=== PATIENT | male | born 1955 | race Caucasian/White ===

== ENCOUNTER 2020-03-27 09:37 | Emergency (ER) | payer MEDICARE, OTHER, SELFPAY ==
--- NOTE | 2020-03-27 09:49 | ED.SKABFB ---
HPI - Skin/Abscess/Foreign Bdy General Chief complaint: Skin/Abscess/Foreign Body Stated complaint: rash Time Seen by Provider: 03/27/20 09:54 Source: patient and RN notes reviewed Mode of arrival: ambulatory Limitations: no limitations History of Present Illness HPI narrative: 65 year old male who presents to [facility] care with complaints of red raised rash which started on his left forearm this morning around 0830 and after he took a hot shower rash spread to his other forearm and chest and abdomen. Patient states that he was diagnosed positive COVID on 03/02/2020 and his symptoms have resolved. Patient has red raised rash on bilateral forearms and also noted on chest and abdominal region which is pruritic and are circular like hive formation, no weeping or vesicles. Patient denies any new medications,food, laundry soap, bath soap or lotions. MD complaint: rash Onset (ago): hour(s) (1.5 hours ago) Location: chest, LUE and RUE Severity: moderate Quality: pruritic Relieving factors: topical medication (benadryl cream) Exacerbating factors: other (took hot shower made symptoms worse) Context: recent illness (COVID positive 03/02/2020) Associated symptoms: denies other symptoms Treatments prior to arrival: OTC topical medication Related Data Home Medications Medication Instructions Recorded Confirmed benzonatate 200 mg PO DAILY 03/27/20 03/27/20 Allergies Allergy/AdvReac Type Severity Reaction Status Date / Time Sulfa (Sulfonamide Allergy Severe RED RASH Verified 03/27/20 09:41 Antibiotics) ENTIRE BODY Review of Systems Review of Systems: Narrative: CONSTITUTIONAL: Denies fever, chills, or sweats. EYES: Denies visual changes, redness, or discharge. ENT: Denies rhinorrhea, congestion, sore throat, or otalgia. CARDIOVASCULAR: Denies chest pain, palpitations, or edema. RESPIRATORY: Denies cough or dyspnea. GASTROINTESTINAL: Denies abdominal pain, nausea, vomiting, or diarrhea. GENITOURINARY: Denies dysuria or hematuria. SKIN: positive red raised pruritic hive formation on bilateral forearms, chest and some lower lateral areas of abdomen. MUSCULOSKELETAL: Denies back pain, joint pain, or myalgia. NEUROLOGIC: Denies headache, numbness, or weakness. PSYCHIATRIC: Denies anxiety or depression. All systems reviewed & are unremarkable except as noted in HPI and below PMFSH Past Medical History Medical History (Updated 03/28/20 @ 00:00 by Skip Iyer) Kidney stones Skin cancer Surgical History Surgical History (Updated 03/27/20 @ 09:59 by Theresa Mcadams NP) History of cervical spinal surgery C5-C6 fusion History of lithotripsy Status post surgical removal of malignant neoplasm of skin Family History Family History (Updated 03/28/20 @ 13:34 by Theresa Mcadams NP) Sibling Diabetes mellitus Mother Heart disease Social History Social History (Updated 03/28/20 @ 13:34 by Theresa Mcadams NP) Smoking status: Never smoker Alcohol intake: current Alcohol use details: Rare Living arrangements: with family Gender identity (if verbalized by the patient): Male Comments At time of signature, agree with nursing past medical, surgical, social and family history. There is no relevant family history pertinent to the presenting complaint Exam Narrative: Exam Narrative: GENERAL: Well-appearing, well-nourished, and in no acute distress. HEAD: Normocephalic, atraumatic. EYES: PERRLA and EOMI. ENT: Nares clear, no rhinorrhea or epistaxis. Mucous membranes moist. NECK: Supple. CHEST: Clear to auscultation. No respiratory distress. HEART: Regular rate and rhythm. No murmur heard. Normal peripheral pulses. ABDOMEN: Soft, nontender, nondistended, normal active bowel sounds. EXTREMITIES: Normal range of motion. No edema. SKIN: Warm, dry, no rash. NEURO: No focal deficits. Alert and oriented x3. Course Vital Signs Vital signs: Vital Signs Temperature 36.0 C L 03/27/20 09:52 Pulse Rate 79
[2020-03-27 09:52] VITALS: BP 136/81; PULSE 79; RESP 16; TEMP 36; O2SAT 98
[2020-03-27] MEDS: methylPREDNISolone ACETATE 80 MG/ML VIAL IM (10:16)
[2020-03-27 10:19] VITALS: BP 136/81; PULSE 79; RESP 16; TEMP 36; O2SAT 98
== END 2020-03-27 10:30 | disposition home or self-care (01) ==
PROVIDERS: Emergency Provider Registered Nurse; PCP Family Medicine
DX: L50.9 Urticaria, unspecified (principal); Z85.828 Personal history of other malignant neoplasm of skin; Z86.19 Personal history of other infectious and parasitic diseases
CPT/HCPCS: 96372; 99213; G0463; J1040

== ENCOUNTER 2021-11-25 07:51 | Outpatient (NON) | payer MEDICARE, SELFPAY | END 2021-11-25 07:52 | disposition home or self-care (01) | LOC: ANHLAB 11-26 07:56 | PROVIDERS: PCP Family Medicine; Visit Provider Internal Medicine Gastroenterology | DX: Z12.11 Encounter for screening for malignant neoplasm of colon (principal) | CPT/HCPCS: 88305 ==

== ENCOUNTER 2021-11-25 11:55 | Day surgery (SDC) | payer MEDICARE, SELFPAY ==
[2021-11-08 13:34] VITALS: BMI 28.7
[2021-11-25 12:15] VITALS: BP 135/82; PULSE 93; RESP 16; TEMP 37; O2SAT 98
[2021-11-25 12:23] VITALS: BMI 29.9
--- NOTE | 2021-11-25 13:36 | P.HP_ITS ---
H&P: HPI History of Present Illness Date/Time: 11/25/21 13:36 Chief Complaint: History of colon polyps. Narrative: This is a 66-year-old white male patient seen in evaluation for colonoscopy. Patient has a history of colon polyps in the past. Patient's current weight appetite bowel movements are normal. His most recent colonoscopy 2016 was unremarkable. Patient denies abdominal pain. He has had no bleeding. Family history noncontributory. Review of Systems Review of Systems: Review of systems noncontributory. [facility] Past Medical History Medical History (Updated 11/25/21 @ 13:38 by Al Bazzi MD) Kidney stones Skin cancer Surgical History Surgical History (Updated 03/27/20 @ 09:59 by Theresa Mcadams NP) History of cervical spinal surgery C5-C6 fusion History of lithotripsy Status post surgical removal of malignant neoplasm of skin Family History Family History (Updated 03/28/20 @ 13:34 by Theresa Mcadams NP) Sibling Diabetes mellitus Mother Heart disease Social History Social History (Updated 03/28/20 @ 13:34 by Theresa Mcadams NP) Smoking status: Never smoker Alcohol intake: current Drinks per week: 2 Alcohol use details: Rare Substance use type: does not use Living arrangements: with family Gender identity (if verbalized by the patient): Male Spiritual care concerns: No Meds Home Medications and Allergies Home Medications Medication Instructions Recorded Confirmed Type sodium sul 1.479 gram-potas ch See Rx Instructions PO PER PKG DIR 09/29/21 Rx 0.188 gram-magnes sul 0.225 gram #24 tabs tablet (Sutab) Allergies Allergy/AdvReac Type Severity Reaction Status Date / Time Sulfa (Sulfonamide Allergy Severe RED RASH Verified 11/25/21 12:19 Antibiotics) ENTIRE BODY Exam Narrative: Physical exam reveals patient to be alert. Vital signs stable. HEENT exam is unremarkable. Patient is anicteric. Lungs are clear to auscultation and percussion. Heart is without murmur or extra sounds. Abdomen bowel sounds present soft nontender with no organomegaly. Digital external rectal exam is normal. Assessment and Plan Assessment and plan (1) Encounter for screening colonoscopy: Code(s): Z12.11 - Encounter for screening for malignant neoplasm of colon Status: Acute Assessment and Plan: Patient presents for screening colonoscopy. Patient has a distant history of colon polyps. Most recent colonoscopy fiber 6 years ago was unremarkable. Plan is for colonoscopy now further recommendations will be given after endoscopy.
[2021-11-25] MEDS: LACTATED RINGERS 1,000 ML 150 ML IV CONT (13:38)
--- NOTE | 2021-11-25 13:48 | P.PNAN_ITS ---
Anes - Initial Pre Proc Eval Procedure: Operation Date: 11/25/21 13:30 Proposed Procedures p Screening Colonoscopy - Al Bazzi MD Date/Time: 11/25/21 13:48 Surgeon: Al Bazzi MD Pre Op Diagnosis: History of Polyps Patient Data Age: 66 Gender: M Height: 1.78 m Weight: 94.65 kg Allergies Allergy/AdvReac Type Severity Reaction Status Date / Time Sulfa (Sulfonamide Allergy Severe RED RASH Verified 11/25/21 12:19 Antibiotics) ENTIRE BODY Home Medications Medication Instructions Recorded Confirmed Type sodium sul 1.479 gram-potas ch See Rx Instructions PO PER PKG DIR 09/29/21 Rx 0.188 gram-magnes sul 0.225 gram #24 tabs tablet (Sutab) Patient hx anesthesia problems: none Family hx anesthesia problems: none Results Review: All pre-operative results and documents have been reviewed as part of the pre- operative evaluation. [facility] Past Medical History Medical History (Updated 11/25/21 @ 13:48 by Mark Esquivel MD) Kidney stones Overweight Skin cancer Surgical History Surgical History History of cervical spinal surgery C5-C6 fusion History of lithotripsy Status post surgical removal of malignant neoplasm of skin Family History Family History Sibling Diabetes mellitus Mother Heart disease Social History Social History Smoking status: Never smoker Alcohol intake: current Drinks per week: 2 Alcohol use details: Rare Substance use type: does not use Living arrangements: with family Gender identity (if verbalized by the patient): Male Spiritual care concerns: No Anes - Eval Final PreProcedure Day of Procedure 11/25/21 13:48 Patient weight: overweight Heart: regular rate and rhythm Lungs: clear to auscultation Airway: Mallampati scale class II Last oral intake: >/= 8 hours ASA classification: II Emergent: no Anesthetic plan: proceed Anesthesia type and monitoring: general GIVS and standard monitoring Results Review: All pre-operative results and documents have been reviewed as part of the pre- operative evaluation. Informed Consent: The patient's anesthetic plan and its attendant risks and benefits were discussed with the patient/family/POA. Questions were solicited and answers provided to the satisfaction of the patient/family/POA.
[2021-11-25 15:02] VITALS: BP 130/79; PULSE 77; RESP 16; O2SAT 100
[2021-11-25 15:12] VITALS: BP 140/108; PULSE 77; RESP 18; O2SAT 100
[2021-11-25 15:22] VITALS: BP 152/90; PULSE 68; RESP 18
--- NOTE | 2021-11-25 15:32 | WPDANESPN ---
Anes - Prog Note Post-Op Date/Time: 11/25/21 15:32 Cardiovascular status: normal Respiratory status: normal Airway patency: baseline Mental status: baseline Post-Op hydration status: normal Vital Signs: Last Vital Signs Temp 37.0 C 11/25/21 12:15 Pulse 68 11/25/21 15:22 Resp 18 11/25/21 15:22 BP 152/90 H 11/25/21 15:22 Pulse Ox 100 11/25/21 15:12 O2 Del Method Room Air 11/25/21 15:22 Pain Score (VAS): 0/10 I/O: Intake & Output 11/24/21 11/25/21 11/25/21 23:59 07:59 15:59 Intake Total 150 Balance 150 Patient Feedback: Patient satisfied with anesthetic care.
== END 2021-11-25 15:44 | disposition home or self-care (01) ==
PROVIDERS: PCP Family Medicine; Visit Provider Internal Medicine Gastroenterology
PROC: 0DJD8ZZ Inspection of Lower Intestinal Tract, Via Natural or Artificial Opening Endoscopic (ICD-10-PCS; CPT 45378; principal; 2021-11-25 13:30)
DX: Z86.010 Personal history of colon polyps (principal)
CPT/HCPCS: 45385

== ENCOUNTER → 2022-04-20 15:07 | Outpatient (CLI) | payer MEDICARE, SELFPAY ==
--- NOTE | ~2022-04-20 | XR_ITS ---
XR knee RT min 4V DATE: 04/20/2022 15:27 INDICATION: Right knee pain TECHNIQUE: 4 views COMPARISON: 03/2018 right knee FINDINGS: There is tricompartment osteoarthritis, severe at the medial compartment with nearly comple te obliteration of medial compartment joint space. There is mild periarticular spurring at the latera l and patellofemoral compartments. Mild suprapatellar knee joint effusion is suggested. No fracture, dislocation, periosteal reaction or bone destruction. No radiopaque intra-articular loos e body or chondral calcinosis. 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 TS SIFTER
== END ==
PROVIDERS: PCP Family Medicine; Visit Provider Physician Assistant
DX: M17.11 Unilateral primary osteoarthritis, right knee (principal); M25.461 Effusion, right knee
CPT/HCPCS: 73564

== ENCOUNTER → 2023-05-31 13:44 | Outpatient (CLI) | payer MEDICARE, SELFPAY ==
--- NOTE | ~2023-05-31 | MR_ITS ---
EXAMINATION: MR brain/brain stem wo con DATE: 05/31/2023 14:24 INDICATION: Paresthesias of skin TECHNIQUE: Magnetic resonance imaging (MRI) of the brain and brainstem was performed without intraven ous contrast. Sequences included sagittal and axial T1-weighted SE, axial diffusion-weighted FS SE, a xial T2*-weighted GRE, axial T2-weighted FLAIR, and axial T2-weighted FSE. Apparent diffusion coeffic ient (ADC) maps were created. COMPARISON: None. FINDINGS: Small region of restricted diffusion with increased T2 signal in the posterior right frontal venegas r adiata consistent with acute infarct. No intracranial hemorrhage or abnormal intracranial mass lesion . There are scattered areas of nonspecific increased T2-weighted signal intensity in the cerebral whi te matter, predominantly involving the deep and periventricular white matter which is within normal l imits for age. There are no intraparenchymal signal abnormalities seen on the other pulse sequences. The ventricles are symmetric and normal in size. There are no abnormal extra-axial fluid collections. Flow voids are seen in the cerebral arteries on the T2-weighted sequences consistent with their expe cted patency. There is mucosal thickening throughout the paranasal sinuses. The right maxillary sinus is completely filled with T2 hyperintense mucous. Visualized orbits and soft tissues are unremarkabl e. IMPRESSION: 1. Acute infarct in the posterior right frontal venegas radiata. 2. Sinus disease with complete filling of the right maxillary sinus. Reviewed, dictated and finalized at location A. MANAGEMENT ANALYST
== END ==
PROVIDERS: PCP Family Medicine; Visit Provider Family Medicine
DX: R20.2 Paresthesia of skin (principal); J32.9 Chronic sinusitis, unspecified
CPT/HCPCS: 70551

== ENCOUNTER 2023-06-01 14:31 | Outpatient (CLI) | payer MEDICARE, SELFPAY ==
--- NOTE | ~2023-06-01 | US_ITS ---
EXAMINATION: US carotid duplex BI DATE: 06/01/2023 15:17 INDICATION: Cerebral infarct TECHNIQUE: Grayscale, color Doppler, and pulsed Doppler images of the cervical carotid arteries were obtained. The degree of vessel stenosis is placed in one of the following categories: normal, <50%, 5 0-69%, >=70% but less than near-occlusion, near-occlusion, or total occlusion. Note that percent sten osis relative to normal distal artery lumen diameter is indirectly measured from velocity measurement s as described by Tyrone, et al. Radiology 2003; 229:340-346. COMPARISON: None. FINDINGS: RIGHT: The right common carotid artery (CCA) peak systolic velocity (PSV) is 100 cm/s. The right internal ca rotid artery (ICA) PSV is 85 cm/s. The right ICA end-diastolic velocity (EDV) is 23 cm/s. The right I CA/CCA PSV ratio is 0.8. Grayscale and color Doppler images yield an estimate of <50% diameter reduct ion from plaque in the ICA. The external carotid artery (ECA) PSV is 65 cm/s. There is antegrade flow in the right vertebral artery. LEFT: The left CCA PSV is 125 cm/s. The left ICA PSV is 64 cm/s. The left ICA EDV is 27 cm/s. The left ICA/ CCA PSV ratio is 0.5. Grayscale and color Doppler images yield an estimate of <50% diameter reduction from plaque in the ICA. The ECA PSV is 64 cm/s. There is antegrade flow in the left vertebral artery . IMPRESSION: 1. <50% stenosis in the right internal carotid artery. 2. <50% stenosis in the left internal carotid artery. Reviewed, dictated and finalized at location A. NEER FIRST ASSISTANT
== END 2023-06-01 14:32 | disposition home or self-care (01) ==
LOC: ANHIMG 14:33
PROVIDERS: PCP Family Medicine; Visit Provider Family Medicine
DX: I63.9 Cerebral infarction, unspecified (principal); I65.23 Occlusion and stenosis of bilateral carotid arteries
CPT/HCPCS: 93880

== ENCOUNTER 2023-08-15 06:44 | Outpatient (CLI) | payer MEDICARE, SELFPAY ==
--- NOTE | ~2023-08-15 | CT_ITS ---
CT ANGIOGRAM NECK AND HEAD History: Cerebral infarction. Technique: Axial noncontrast imaging of brain was performed. Serial spiral axial images through the h ead and neck were then obtained during arterial phase IV injection of 100 cc of Omnipaque 350. 3-D po stprocessing and MIP images were then reconstructed on the remote workstation. Dose reduction techniq ue was used on this scan by utilizing automated exposure control and iterative reconstruction techniq ue. The dose-length product (DLP) was 1708.39 mGy-cm. CTA neck findings: Bilateral vertebral arteries are patent. Bilateral common carotid, internal carot id, and external carotid arteries are patent. No large vessel occlusion. No stenosis or aneurysm. The proximal right internal carotid artery demonstrates 0% stenosis relative to the normal distal artery lumen diameter. The proximal left internal carotid artery demonstrates 0% stenosis relative to the n ormal distal artery lumen diameter. CTA head findings: Distal vertebral arteries, basilar artery, and posterior cerebral arteries are pat ent. Distal internal carotid arteries, middle cerebral arteries, and anterior cerebral arteries are p atent. No large vessel occlusion. No stenosis or aneurysm. Axial noncontrast imaging of the brain demonstrates a small chronic focal infarct in the right perive ntricular white matter/right basal ganglia. No acute infarct, internal hemorrhage, mass lesion identi fied. Ty-white differentiation preserved. No mass effect or midline shift. Ventricles and subarachn oid spaces are unremarkable. Paranasal sinuses and mastoid air cells are clear. Impression: No significant vascular abnormality seen. No acute abnormality seen in the brain on noncontrast CT imaging of the brain. Focal chronic infarct in the right basal ganglia/right periventricular white matter. Reviewed, dictated and finalized at location . Impression: No significant vascular abnormality seen. No acute abnormality seen in the brain on noncontrast CT imaging of the brain. Focal chronic infarct in the right basal ganglia/right periventricular white ma tter.
[2023-08-15 07:39] LABS: Estimated Glomerular Filt Rate > 60
== END 2023-08-15 06:45 | disposition home or self-care (01) ==
PROVIDERS: PCP Family Medicine; Visit Provider Psychiatry & Neurology Neurology
DX: I63.9 Cerebral infarction, unspecified (principal); M54.2 Cervicalgia; R20.0 Anesthesia of skin; R20.2 Paresthesia of skin
CPT/HCPCS: 70496; 70498; Q9967

== ENCOUNTER 2023-09-05 08:56 | Outpatient (CLI) | payer MEDICARE, SELFPAY ==
--- NOTE | 2023-09-05 11:00 | NEURO_ITS ---
Impression: # Complains of left upper extremity discomfort/tingling. History of C-spine surgery in the past. Not diabetic. # Left moderate to severe left Carpal Tunnel Syndrome. # Left ulnar neuropathy across the elbow. # Needle/EMG exam neurogenic. Nerve Conduction Studies Anti Sensory Summary Table Stim Site NR Peak (ms) P-T Amp (?V) Site1 Site2 Delta-P (ms) Dist (cm) Vinay (m/s) Left Median Anti Sensory (2-3nd Digit) Wrist 4.6 30.5 Wrist 2-3nd Digit 4.6 14.0 30 Wrist 4.6 21.5 Wrist 2-3nd Digit 4.6 14.0 30 Left Radial Anti Sensory (Base 1st Digit) Wrist 2.3 13.5 Wrist Base 1st Digit 2.3 0.0 Left Ulnar Anti Sensory (5th Digit) Wrist 3.2 20.6 Wrist 5th Digit 3.2 14.0 44 Motor Summary Table Stim Site NR Onset (ms) O-P Amp (mV) Site1 Site2 Delta-0 (ms) Dist (cm) Vinay (m/s) Left Median Motor (Abd Poll Brev) Wrist 5.6 1.7 Elbow Wrist 5.4 28.0 52 Elbow 11.0 1.7 Left Ulnar Motor (Abd Dig Minimi) Wrist 2.6 4.9 A Elbow Wrist 6.5 29.0 45 A Elbow 9.1 3.0 B Elbow Wrist 4.8 25.0 52 F Wave Studies NR F-Lat (ms) L-R F-Lat (ms) Left Median (Mrkrs) (Abd Poll Brev) 29.06 Left Ulnar (Mrkrs) (Abd Dig Min) 30.79 EMG Side Muscle Nerve Root Ins Act Fibs Amp Dur Recrt Comment Left 1stDorInt Ulnar C8-T1 Nml Nml Nml >12ms +2 Left Ext Indicis Radial (Post Int) C7-8 Nml Nml Nml Nml Nml Left Ext Digitorum Radial (Post Int) C7-8 Nml Nml Nml Nml Nml Left BrachioRad Radial C5-6 Nml Nml Nml Nml Nml Left PronatorTeres Median C6-7 Nml Nml Nml Nml Nml Left Abd Poll Brev Median C8-T1 Nml Nml Nml >12ms +2 Left ABD Dig Min Ulnar C8-T1 Nml Nml Nml >12ms +2 Left Biceps Musculocut C5-6 Nml Nml Nml Nml Nml Left Triceps Radial C6-7-8 Nml Nml Nml Nml Nml Left Deltoid Axillary C5-6 Nml Nml Nml Nml Nml MTDD
== END 2023-09-05 08:57 | disposition home or self-care (01) ==
LOC: ANHNEURO 08:56
PROVIDERS: PCP Family Medicine; Visit Provider Psychiatry & Neurology Neurology
DX: G56.02 Carpal tunnel syndrome, left upper limb (principal); G56.22 Lesion of ulnar nerve, left upper limb; E11.9 Type 2 diabetes mellitus without complications; I63.9 Cerebral infarction, unspecified; Z98.1 Arthrodesis status
CPT/HCPCS: 95886; 95909

== ENCOUNTER 2023-09-26 11:18 | Outpatient (CLI) | payer MEDICARE, SELFPAY ==
--- NOTE | ~2023-09-26 | XR_ITS ---
Clinical Indication: Disc PA and lateral views of the chest: Comparison: 02/08/2016 Findings: The lungs are clear, without evidence of focal consolidation or pleural effusion. Cardiome diastinal silhouette is within normal limits. Bones and soft tissues are unremarkable. Impression: Normal chest. Reviewed, dictated and finalized at [facility]. Impression: Normal chest.
== END 2023-09-26 11:19 ==
PROVIDERS: PCP Family Medicine; Visit Provider Family Medicine
DX: R06.09 Other forms of dyspnea (principal)
CPT/HCPCS: 71046

== ENCOUNTER 2023-11-14 10:03 | Outpatient (CLI) | payer MEDICARE, SELFPAY ==
--- NOTE | 2023-11-14 22:04 | WPDPFTINT ---
PFT Procedure Performed PFT Procedure Performed Plethysmography (Lung Vol) Diffusing Cap (DLCO) Flow Vol Loop Spirometry w/o Bronchodil PFT Interpretation DOS: 11/14/2023 REQUESTING: Dr. lAen Whitney REASON FOR TESTING: Shortness of breath PULMONARY FUNCTION TESTS Results are reliable and reproducible. Repeatability of spirometry FEV1 maneuver is Grade A. Spirometry: The FEV1 is 2.79 L, 86%. The FVC is 3.71 L, 86%. The FEV1/FVC ratio is 75%. No bronchodilator was administered. Lung volumes: The total lung capacity is 6.96 L, 99%. The residual volume is 2.90 L, 119%. The RV/TLC is 42%. FRC is 4.06 L, 109%. Airway resistance is normal. Diffusion: DLCO is 16.7, 64%, mildly decreased. The DLCO/VA is 3.79, 96%, normal. Flow volume loop: The flow volume loop is unremarkable. IMPRESSION: Normal spirometry, normal lung volumes, mild decrease in diffusion capacity which corrects for DLCO. This is a nonspecific pattern. No bronchodilator was administered. No prior studies for comparison. Kristina Nelson MD
== END 2023-11-14 10:04 | disposition home or self-care (01) ==
PROVIDERS: PCP Family Medicine; Visit Provider Family Medicine
DX: R06.02 Shortness of breath (principal)
CPT/HCPCS: 94375; 94726; 94729

== ENCOUNTER 2024-01-17 10:55 | Outpatient (CLI) | payer MEDICARE, SELFPAY ==
--- NOTE | ~2024-01-17 | XR_ITS ---
Clinical Indication: Shortness of breath PA and lateral views of the chest: Comparison: 09/18/2023 Findings: The lungs are clear, without evidence of focal consolidation or pleural effusion. Cardiome diastinal silhouette is within normal limits. Bones and soft tissues are unremarkable. Impression: Normal chest. Reviewed, dictated and finalized at location . Impression: Normal chest.
[2024-01-17 11:20] LABS: Basophils Percent Auto 0.2 % (0.2-1.2); Eosinophils Absolute Auto 0.1 K/mm3 (0-0.3); Eosinophils Percent Auto 1.4 % (0-4.4); Hematocrit 40.6 % (42.0-52.0); Hemoglobin 13.3 g/dL (14.0-18.0); Immature Granulocyte Absolute 0.01 K/mm3 (0.00-0.031); Immature Granulocyte Percent A 0.2 % (0-0.5); Lymphocytes Absolute Auto 1.59 K/mm3 (0.9-3.2); Lymphocytes Percent Auto 31.4 % (18.3-44.2); Mean Corpuscular HGB Conc 32.8 g/dl (32-36); Mean Corpuscular Hemoglobin 32.4 pg (26-34); Mean Platelet Volume 10.4 fl (7.4-10.4); Monocytes Absolute Auto 0.7 K/mm3 (0.1-0.6); Monocytes Percent Auto 13.2 % (2.6-8.5); Neutrophils Absolute Auto 2.7 K/mm3 (1.3-6.7); Neutrophils Percent Auto 53.6 % (45.5-73.1); Platelet Count Result 134 k/mm3 (150-375); Red Cell Distribution Width 13.2 % (11.5-14.5); White Blood Count 5.1 K/mm3 (4.5-10.0)
[2024-01-17 11:29] LABS: Alanine Aminotransferase 34 U/L (6-50); Albumin Level 4.2 g/dL (3.5-5.1); Alkaline Phosphatase 60 U/L (38-126); Anion Gap 8 mmol/L (4-12); Aspartate Amino Transferase 44 U/L (17-59); Bilirubin,Total 0.5 mg/dL (0.2-1.3); Blood Urea Nitrogen 18 mg/dL (9-20); Calcium 9.2 mg/dL (8.4-10.2); Carbon Dioxide 28 mmol/L (22-30); Chloride 102 mmol/L (98-107); Estimated Glomerular Filt Rate > 60; Glucose 98 mg/dL (65-110); Potassium 4.1 mmol/L (3.4-5.0); Sodium 138 mmol/L (137-145)
== END 2024-01-17 10:56 | disposition home or self-care (01) ==
LOC: ANHLAB 10:59
PROVIDERS: PCP Family Medicine; Visit Provider Internal Medicine Pulmonary Disease
DX: R06.02 Shortness of breath (principal)
CPT/HCPCS: 36415; 71046; 80053; 85025

== ENCOUNTER 2024-04-04 08:15 | Outpatient (CLI) | payer MEDICARE, SELFPAY ==
--- NOTE | ~2024-04-04 | CT_ITS ---
CT Scan of the Chest without Contrast: Clinical Indication: Shortness of breath Technique: Contiguous sections were acquired throughout the chest without intravenous contrast. Dose reduction technique was used on this scan by utilizing automated exposure control and iterative recon struction technique. The dose-length product (DLP) was 382.04 mGy-cm. Findings: There is no evidence of any significant mediastinal, hilar or axillary lymphadenopathy. The mediastin al soft tissues appear normal. There is no evidence of pleural or pericardial effusion. The lungs are clear. No pulmonary nodules or infiltrates are noted. Images through the upper abdomen reveal no abnormalities. Impression: No significant abnormalities seen. Reviewed, dictated and finalized at location . F INFORMATION OFFICER Impression: No significant abnormalities seen.
== END 2024-04-04 08:16 | disposition home or self-care (01) ==
LOC: MICIMG 08:16
PROVIDERS: PCP Family Medicine; Visit Provider Family Medicine
DX: R06.02 Shortness of breath (principal)
CPT/HCPCS: 71250

== ENCOUNTER 2024-05-20 10:06 | Outpatient (CLI) | payer MEDICARE, SELFPAY ==
[2024-05-20 11:03] LABS: Lactic Acid Reflex 0.8 mmol/L (0.7-2.0)
[2024-05-22 17:03] LABS: ANA Cascade Screen POSITIVE (NEGATIVE); Chromatin (Nucleosomal) Ab <1.0 NEG AI (<1.0 NEG); Chromatin Antibody Charge YES; DNA (ds) Antibody Charge YES; JO1 Antibody Charge YES; Jo-1 Antibody <1.0 NEG AI (<1.0 NEG); RNP Antibody <1.0 NEG AI (<1.0 NEG); RNP Antibody Charge YES; SCL70 Antibody Charge YES; SSA Antibody Charge YES; SSB Antibody Charge YES; Sjogren's Antibody (SS-B) 4.4 POS AI (<1.0 NEG); Sm Antibody <1.0 NEG AI (<1.0 NEG); Sm Antibody Charge YES; Sm/RNP Antibody <1.0 NEG AI (<1.0 NEG); Sm/RNP Antibody Charge YES
== END 2024-05-20 10:07 | disposition home or self-care (01) ==
LOC: ANHLAB 10:07
PROVIDERS: PCP Family Medicine; Visit Provider Internal Medicine Critical Care Medicine
DX: R06.02 Shortness of breath (principal)
CPT/HCPCS: 36415; 83605; 86038; 86225; 86235; 86364

== ENCOUNTER 2024-07-26 10:15 | Outpatient (RCR) | payer MEDICARE, SELFPAY ==
--- NOTE | 2024-07-12 15:28 | OPREHPOC ---
Outpatient Therapy Plan of Care This is a Multidisciplinary Plan of Care that may contain components documented by all disciplines (PT, OT, and ST.) PT Problem 1 PT Problem #1 Knowledge Deficit PT Goal 1 Goal / Goal Update Nelson with HEP Target Visit 4 PT Goal 2 Goal / Goal Update Report no pain greater than 1/10 for 2 consecutive weeks Target Visit 5 PT Problem 2 PT Problem #2 Impaired Range of Motion PT Goal 1 Goal / Goal Update 1. Achieve 170 degrees of left shoulder flexion ROM 1. Achieve 80 degrees of left shoulder external rotation ROM Target Visit 5
--- NOTE | 2024-07-12 15:28 | PTOPEVAL1 ---
Assessment and note entered by Senthil Robertson, PT Evaluation Information Assessment Status Evaluation Diagnosis Glenohumeral joint DJD, OA of left shoulder ICD-10 Condition Codes (PT) Pain in left shoulder M25.512 Onset May 2024 Subjective Information Reports that he was shoveling snow and may have overdone it. He had radicular pain following activity. Had a steroid injection in late June and it seems to have helped. He ahs used topicals for pain as well. Reported Pain Level Pain Score 0: Self Report Assessment PT Clinical Summary Patient presents with signs and symptoms consistent with shoulder impingement syndrome. Overall pain was controlled today and able to tolerate capsular mobilization. 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 Plan of Care Interventions Gait Training,Manual Therapy,Neuro Re-education, Therapeutic Activities,Therapeutic Exercise PT Services Indicated Yes Treatment Frequency and 1-2x/week for 5 visits Duration These treatments will address the objective and functional deficits as defined above. The patient will be advanced safely and appropriately in order for the patient to progress towards his/her prior level of function. Additional exercises will be introduced and as well as a comprehensive home exercise program upon discharge, if needed, ?to ensure carryover of functional gains achieved in the clinic. This treatment plan has been reviewed and agreement upon by the patient.
--- NOTE | 2024-07-26 10:48 | PTOPDC ---
Assessment and note entered by Senthil Robertson, PT Evaluation Information Assessment Status Discharge Diagnosis Glenohumeral joint DJD, OA of left shoulder ICD-10 Condition Codes (PT) Pain in left shoulder M25.512 Onset May 2024 Subjective Information Reports that he was shoveling snow and may have overdone it. He had radicular pain following activity. Had a steroid injection in late June and it seems to have helped. He ahs used topicals for pain as well. Reported Pain Level Pain Score 0: Self Report Assessment PT Clinical Summary Patient has met all goals for therapy and is suitable for discharge to HEP to this time. Compliant and understanding of HEP. Plan of Care PT Services Indicated Yes
== END 2024-08-26 13:51 | disposition home or self-care (01) ==
LOC: ANHGOSHPT 10:15
PROVIDERS: PCP Family Medicine; Visit Provider Orthopaedic Surgery
DX: M25.512 Pain in left shoulder (principal); M75.82 Other shoulder lesions, left shoulder; M19.012 Primary osteoarthritis, left shoulder
CPT/HCPCS: 97110; 97140; 97161; 97530

== ENCOUNTER 2024-10-07 14:12 | Outpatient (RCR) | payer MEDICARE, SELFPAY ==
--- NOTE | 2024-10-07 15:25 | STOPEVAL1 ---
Assessment and note entered by Mi Wang, FISH RECEIVER Evaluation Information Diagnosis R13.10 ICD-10 Condition Codes (ST) Dysphagia, pharyngeal phase R13.13 Subjective Information The patient reports cervical surgery in October 2001 to C5-C6 without history of dysphagia. He reports noticing difficulty first in 2019 and that it seems to have become progressively worse overtime. 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 The patient and spouse report primary difficulty with chicken and turkey or dry meats. Which he avoids. No prior MBS study has been completed and he has had no recent respiratory changes or pneumonia. Reported Pain Level Pain Score 0: Self Report Assessment ST Clinical Summary The patient reports cervical surgery in October 2001 to C5-C6 without history of dysphagia. He reports noticing difficulty first in 2019 and that it seems to have become progressively worse overtime. 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 The patient and spouse report primary difficulty with chicken and turkey or dry meats. Which he avoids. No prior MBS study has been completed and he has had no recent respiratory changes or pneumonia. Oral preparation: Timely for trials of thin liquid . With trials of soft bread texture extra time was allowed for mastication of the bolus but again was fairly timely. Pharyngeal Stage: The patient was presented trials solid (soft bread and cracker texture). Initially some coughing after first swallow with the bread texture. Patient appeared to still be completing oral preparation and was not prepared for the initial swallow. However, all additional trials were completed without clinical signs of aspiration and clear vocal quality. When presented with cup drinks of thin liquid the patient had a timely swallow response, clear vocal quality and no observed clinical signs of aspiration. Recommend 1. MBS to better assess swallow function and cricopharyngeal area. 2. Small bites , slow rate of intake, and liquid wash as needed till MBS completed. Plan of Care Interventions Treatment of Swallowing Dysfunction ST Services Indicated Yes These treatments will address the objective and functional deficits as defined above. The patient will be advanced safely and appropriately in order for the patient to progress towards his/her prior level of function. Additional exercises will be introduced and as well as a comprehensive home exercise program upon discharge, if needed, ?to ensure carryover of functional gains achieved in the clinic. This treatment plan has been reviewed and agreement upon by the patient.
--- NOTE | 2024-10-07 15:27 | OPREHPOC ---
Outpatient Therapy Plan of Care This is a Multidisciplinary Plan of Care that may contain components documented by all disciplines (PT, OT, and ST.) ST Problem 1 ST Problem #[address] Goal 1 Goal / Goal Update The patient will participate in home programming to improve carry over/generalization of skills to home environment. Target Visit [address] Problem #[address] Goal 1 Goal / Goal Update Dysphagia: 1. MBS study be completed. 2. Utilize dysphagia compensatory techniques small bites, slow rate, liquid wash 85% of time. 3. Additional dysphagia exercises program as indicated following MBS study. Target Visit 10
--- NOTE | 2025-03-13 13:23 | PCSTNOTE ---
SPEECH THERAPY DISCHARGE: 03/13/25: Dr. Nelson. Patient came for one time initial evaluation only.
== END 2025-01-05 23:59 | disposition home or self-care (01) ==
LOC: ANHST 14:12
PROVIDERS: PCP Internal Medicine Critical Care Medicine; Visit Provider Internal Medicine Critical Care Medicine
DX: R13.10 Dysphagia, unspecified (principal)
CPT/HCPCS: 92526; 92610